=== PATIENT | female | born 1950 | race Caucasian/White ===

== ENCOUNTER 2022-04-20 08:52 | Outpatient (CLI) | payer MEDICARE, BC, SELFPAY ==
--- NOTE | 2022-04-20 09:15 | CRLHL7_ITS ---
For Patients: As a result of the Cures Act, medical imaging exams and procedure reports are released immediately into your electronic medical record. You may view this report before your referring provider. If you have questions, please contact your health care provider. INDICATION: Diplopia. 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 TECHNIQUE: Brain is scanned with sagittal T1 axial FLAIR T2 diffusion-weighted gadolinium-enhanced axial T1 images of the entire brain. Thin section axial and coronal T1 weighted images with without gadolinium contrast and fat saturation axial and coronal fat saturated T2 weighted images of the brain. FINDINGS: MRI brain: Lateral 3rd and 4th ventricles normal in size and shape. No evidence of acute ischemic infarction. No areas of diffusion restriction. No evidence of intracranial hemorrhage. No periventricular white matter lesions to suggest demyelinating disease. No enhancing intra-axial or extra-axial lesions. No pathologic enhancement cranial nerves or leptomeninges. MRI orbits: The orbital globes appear normal. The extraocular muscles and orbital fat planes appear normal. The optic nerves and chiasm appear normal. No posterior orbital or suprasellar mass or enhancing lesion. Subtle asymmetry in the pituitary gland but infundibulum is midline. There is no suprasellar or parasellar lesion. IMPRESSION: 1. No evidence of acute infarction, intracranial hemorrhage, mass, cerebral demyelination or enhancing lesion. 2. No posterior orbital, parasellar mass or brainstem lesion to explain symptoms of diplopia. Dictated by Erlin Lambert MD @ 04/20/2022 1:43:20 PM (Electronically Signed)
--- NOTE | 2022-04-20 10:15 | CRLHL7_ITS ---
For Patients: As a result of the Cures Act, medical imaging exams and procedure reports are released immediately into your electronic medical record. You may view this report before your referring provider. If you have questions, please contact your health care provider. INDICATION: Diplopia. 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 TECHNIQUE: Brain is scanned with sagittal T1 axial FLAIR T2 diffusion-weighted gadolinium-enhanced axial T1 images of the entire brain. Thin section axial and coronal T1 weighted images with without gadolinium contrast and fat saturation axial and coronal fat saturated T2 weighted images of the brain. FINDINGS: MRI brain: Lateral 3rd and 4th ventricles normal in size and shape. No evidence of acute ischemic infarction. No areas of diffusion restriction. No evidence of intracranial hemorrhage. No periventricular white matter lesions to suggest demyelinating disease. No enhancing intra-axial or extra-axial lesions. No pathologic enhancement cranial nerves or leptomeninges. MRI orbits: The orbital globes appear normal. The extraocular muscles and orbital fat planes appear normal. The optic nerves and chiasm appear normal. No posterior orbital or suprasellar mass or enhancing lesion. Subtle asymmetry in the pituitary gland but infundibulum is midline. There is no suprasellar or parasellar lesion. IMPRESSION: 1. No evidence of acute infarction, intracranial hemorrhage, mass, cerebral demyelination or enhancing lesion. 2. No posterior orbital, parasellar mass or brainstem lesion to explain symptoms of diplopia Dictated by Erlin Lambert MD @ 04/20/2022 1:43:49 PM (Electronically Signed)
== END 2022-04-20 08:53 | disposition home or self-care (01) ==
PROVIDERS: PCP Physician Assistant; Visit Provider Physician Assistant
DX: H49.02 Third [oculomotor] nerve palsy, left eye (principal); H53.2 Diplopia
CPT/HCPCS: 70543; 70553; A9575

== ENCOUNTER 2025-03-11 09:53 | Outpatient (CLI) | payer MEDICARE, BC, SELFPAY | END 2025-03-11 09:54 | disposition home or self-care (01) | LOC: INJ CL 09:54 | PROVIDERS: PCP Family Medicine; Visit Provider Family Medicine | DX: M54.16 Radiculopathy, lumbar region (principal); M51.369 Other intervertebral disc degeneration, lumbar region without mention of lumbar back pain or lower extremity pain | CPT/HCPCS: 62323; Q9966 ==